=== PATIENT | male | born 1975 | race Caucasian/White ===

== ENCOUNTER 2019-10-29 14:09 | Emergency (ER) | payer BC ==
[2019-10-29] MEDS ORDERED: traMADol 50 MG Tab PO ONE (14:10)
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
== END 2019-10-29 16:05 | disposition home or self-care (01) ==
LOC: FB.ED 14:09
DX: S43.002A Unspecified subluxation of left shoulder joint, initial encounter (principal); V86.99XA Unspecified occupant of other special all-terrain or other off-road motor vehicle injured in nontraffic accident, initial encounter
CPT/HCPCS: 23650; 73030-RT; 99283-25; A9270-GY